=== PATIENT | female | born 1965 | race Caucasian/White ===

== ENCOUNTER 2017-09-22 17:40 | Emergency (ER) | payer BC ==
[2017-09-22] MEDS ORDERED: HYDROmorphone 1 MG/ML SYRINGE IM STA (18:25)
[2017-09-22] MEDS ORDERED: KETOROLAC 60 MG/2 ML VIAL IM STA (18:25)
[2017-09-22] MEDS ORDERED: BUPIVACAINE 0.5% PF 30 ML VIAL SUBQ STA (18:25)
--- NOTE | 2017-09-22 18:29 | XRAY Preliminary Report ---
Exam: XR WRIST 4 VIEW RT IMPRESSION: 1. Acute, mildly comminuted, intra-articular fracture the distal right radius metaphysis with 2 mm of dorsal displacement of the distal fragment. No significant angulation. 2. Avulsion fracture at the tip of the ulna styloid and a concomitant transverse fracture at the base of the ulna styloid. 3. No dislocation. 4. Large amount of wrist swelling. RADIA SITE ID: [id number]
--- NOTE | 2017-09-22 18:31 | XRAY Report ---
EXAM: RIGHT WRIST RADIOGRAPHY EXAM DATE: 09/22/2017 06:12 PM. CLINICAL HISTORY: Fell onto right wrist. Swollen and distorted. COMPARISON: None. TECHNIQUE: 3 views. FINDINGS: Bones: Acute transverse fracture at the base of the ulna styloid. Small avulsion fracture at the tip of the ulna styloid. There is an acute comminuted intra-articular distal right radius metaphyseal fra cture resulting in 2 mm of dorsal displacement. No significant angulation is noted. No scaphoid fract ure identified. Joints: Normal. No subluxations. Soft Tissues: Large amount of wrist swelling. IMPRESSION: 1. Acute, mildly comminuted, intra-articular fracture of the distal right radius metaphysis with 2 mm of dorsal displacement of the distal fragment. No significant angulation. 2. Avulsion fracture at the tip of the ulna styloid and a concomitant transverse fracture at the base of the ulna styloid. 3. No dislocation. 4. Large amount of wrist swelling. JUAN Referring Provider Line: [phone] SITE ID: [id number]
--- NOTE | 2017-09-22 19:23 | ED Physician Documentation ---
PD HPI UPPER EXT INJURY - Stated complaint Stated Complaint: R WRIST PAIN - Chief complaint Chief Complaint: Trauma Ext - History obtained from History obtained from: Patient - History of Present Illness Location: Right, Wrist (tripped and fell onto wrist with pain and defomrity. She says she grabbed it and pulled it straighter. Having pain and swelling.) Where injury occurred: Home Timing - onset: Today Timing - duration: Minutes Timing - details: Abrupt onset Worsened by: Moving, Palpating Associated symptoms: Swelling. No: Weakness Contributing factors: No: Anticoagulated Similar symptoms before: Has not had sx before Recently seen: Not recently seen Review of Systems Skin: denies: Abrasion (s), Laceration (s) Musculoskeletal: denies: Neck pain, Back pain Neurologic: denies: Headache, Head injury PD PAST MEDICAL HISTORY - Past Medical History Cardiovascular: High cholesterol Respiratory: None Neuro: None Endocrine/Autoimmune: None GI: None : None HEENT: None Psych: None Musculoskeletal: None Derm: None - Past Surgical History Past Surgical History: Yes General: Appendectomy Ortho: ACL reconstruction /INTERNAL MEDICINE NURSE PRACTITIONER: Other - Present Medications Home Medications: Ambulatory Orders Medication Instructions Recorded Confirmed Atorvastatin Calcium [Lipitor] 1 tab PO DAILY 09/22/17 09/22/17 HYDROcod/ACETAM 5/325 [Cabery 5/325] 1 tab PO Q6H PRN #20 tablet 09/22/17 - Allergies Allergies/Adverse Reactions: Allergies Allergy/AdvReac Type Severity Reaction Status Date / Time No Known Drug Allergies Allergy Verified 09/22/17 17:50 - Social History Does the pt smoke?: No Smoking Status: Never smoker Does the pt drink ETOH?: Yes Does the pt have substance abuse?: No - Immunizations Immunizations are current?: Yes - POLST Patient has POLST: No PD ED PE NORMAL - Vitals Vital signs reviewed: Yes - General General: Alert and oriented X 3, Well developed/nourished, Other (appears in pain) - HEENT HEENT: Atraumatic - Neck Neck: Supple, no meningeal sign, No bony TTP, No adenopathy - Cardiac Cardiac: RRR, No murmur - Respiratory Respiratory: Clear bilaterally - Derm Derm: Normal color, Warm and dry - Extremities Extremities: Other (right wrist markedly tender with swelling at distal radius area. Normal color in fingers. ) - Neuro Neuro: Alert and oriented X 3, No motor deficit, No sensory deficit, Normal speech Results - Vitals Vitals: Oxygen O2 Source Room air - Rads (name of study) right wrist Radiology: Prelim report reviewed, EMP read contemporaneously (distal radius fracture in good alignment, and ulnar styloid as well. ) Procedures - Splint (location) right forearm Splint applied by: Tech Type of splint: Fiberglass, Long arm, Sugar tong Other: Patient tolerated well, No complications, Neurovascular intact, Good alignment, Sling provided PD MEDICAL DECISION MAKING - ED course Complexity details: reviewed results, considered differential (I did hematoma block with marcaine and lido. Also given parenteral meds for pain. ), d/w patient Departure - Departure Disposition: 01 Home, Self Care Clinical Impression: Accidental fall Qualifiers: Encounter type: initial encounter Qualified Code(s): W19.XXXA - Unspecified fall, initial encounter Colles' fracture Qualifiers: Encounter type: initial encounter Fracture type: closed Laterality: right Qualified Code(s): S52.531A - Colles' fracture of right radius, initial encounter for closed fracture Condition: Stable Record reviewed to determine appropriate education?: Yes Instructions: ED Fx Colles Wrist No Redu Requ Follow-Up: Crissy Barrios MD [Provider Admit Priv/Credential] - Prescriptions: HYDROcod/ACETAM 5/325 [Cabery 5/325] 1 tab PO Q6H PRN #20 tablet PRN Reason: Pain Comments: Keep the splint on and elevate rest and ice the area often tonight and tomorrow to reduce swelling. Keep the arm in a sling so that it is stays elevated. He can use some naproxen or ibuprofen 2-3 times a day. Add Tylenol or hydrocodone if needed for pain. Follow-up with your orthopedist that you have seen previously, call tomorrow for an appointment for later this week or early next week. If he is unable to see you or you want to have a local orthopedist, I gave the number for orthopedics here on would be as well. Discharge Date/Time: 09/22/17 19:40
[2017-09-22 19:40] VITALS: BP 128/76
== END 2017-09-22 19:40 | disposition home or self-care (01) ==
LOC: ED 17:40
DX: S52.531A Colles' fracture of right radius, initial encounter for closed fracture (principal); W01.0XXA Fall on same level from slipping, tripping and stumbling without subsequent striking against object, initial encounter; Y92.008 Other place in unspecified non-institutional (private) residence as the place of occurrence of the external cause
CPT/HCPCS: 29105; 64450; 73110; 96372; 99283; 99284; J1170

== ENCOUNTER 2017-10-07 06:17 | Day surgery (SDC) | payer BC ==
[2017-10-07] MEDS ORDERED: ceFAZolin 2 GM/50 ML 2 GM/50 ML BAG IV ONE (06:31)
[2017-10-07] MEDS ORDERED: LACTATED RINGERS 1,000 ML IV ONE ×2 (06:39→09:45)
[2017-10-07] MEDS ORDERED: ROPIVACAINE 0.5% PF 20 ML AMPULE ONE (07:22)
[2017-10-07] MEDS ORDERED: LIDOCAINE MPF 1%-EPI 1:200000 30 ML VIAL ONE (07:49)
[2017-10-07] MEDS ORDERED: BUPIVACAINE 0.25% PF 30 ML VIAL ONE (07:49)
[2017-10-07] MEDS ORDERED: LIDOCAINE-MPF 2% 5 ML VIAL IM ONE (08:13)
[2017-10-07] MEDS ORDERED: ROCURONIUM 50 MG/5 ML VIAL IVP ONE (08:13)
[2017-10-07] MEDS ORDERED: fentaNYL 250 MCG/5 ML VIAL IVP ONE (08:13)
[2017-10-07] MEDS ORDERED: ACETAMINOPHEN 1,000 MG/100 ML 100 ML IV ONE (08:13)
[2017-10-07] MEDS ORDERED: PROPOFOL 200 MG/20 ML VIAL IVP ONE (08:13)
[2017-10-07] MEDS ORDERED: BUPIVACAINE 0.25% PF 30 ML VIAL SUBQ ONE ×2 (08:14)
[2017-10-07] MEDS ORDERED: LIDOCAINE 1%-EPI 1:100000 20 ML MDV SUBQ ONE ×2 (08:14)
[2017-10-07] MEDS: HYDROmorphone 1 MG/ML SYRINGE ONE ×2 (09:14→09:26)
[2017-10-07] MEDS ORDERED: KETOROLAC 30 MG/ML VIAL ONE (09:21)
[2017-10-07] MEDS ORDERED: fentaNYL 100 MCG/2 ML VIAL ONE (09:38)
[2017-10-07] MEDS ORDERED: ONDANSETRON 4 MG/2 ML VIAL ONE ×2 (09:39→10:10)
[2017-10-07] MEDS ORDERED: DEXAMETHASONE 4 MG/ML VIAL ONE (10:11)
[2017-10-07] MEDS ORDERED: HYDROcod/ACETAM 5/325 MG TABLET ONE ×2 (10:36→11:26)
[2017-10-07 12:04] VITALS: BP 115/63
--- NOTE | 2017-10-07 15:52 | OPERATIVE REPORT ---
DATE OF SERVICE: 10/07/2017 Physician: Crissy Barrios MD PREOPERATIVE DIAGNOSIS: Right distal radius intraarticular comminuted 4-part fracture. POSTOPERATIVE DIAGNOSIS: Right distal radius intraarticular comminuted 4-part fracture. NAME OF PROCEDURE: Open reduction, internal fixation of right distal radius comminuted 4-part fracture. SURGEON: Crissy Barrios MD ANESTHESIA: General. INDICATIONS FOR SURGERY: The patient is a 52-year-old female status post a ground level fall onto an outstretched wrist causing an intraarticular right wrist fracture. She presented to the clinic and surgery was recommended because of the degree of angulation and the potential instability of the fracture. Recommendation was for open reduction and internal fixation. FINDINGS AT SURGERY: The patient's fracture was found on its volar aspect to have entrapped periosteal tissue. The comminution was mostly on the posterior aspect of the bone. The intra-articular segment had remained minimally displaced through the radial border of the lunate fossa. DESCRIPTION OF OPERATIVE PROCEDURE: The patient was taken to the operating room , was given a general anesthetic. A tourniquet was placed on the upper arm. Forearm and hand were sterilely prepped and draped in a standard fashion. The patient's volar wrist was approached under tourniquet control with a 3-1/2 inch incision directly placed over the top of the flexor carpi radialis tendon. Electrocautery was used for small bleeders and dissection was carried radial to that tendon, directly down to the volar aspect of the wrist. The pronator quadratus was reflected off the volar radius and retracted to the ulnar aspect. The fracture was then identified and exposed, and the periosteum extracted and excised. The _DVR____ [TIME: 02:15] small plate for a right wrist was applied to the volar wrist, and positioned with C-arm assistance in AP and lateral planes. The cortical oblong hole was filled proximally and then the plate was affixed distally with a K-wire. Sequential screw application was then applied using locking holes to the reduced fracture in both the proximal and distal aspect using standard technique, and taking care to ensure that the screws seated well, were locked and did not protrude out the dorsal aspect. At the conclusion, the excess caps were removed from the plate, the pin extracted, the wound irrigated and the tourniquet deflated. Excellent reduction had been gained and excellent stability in bone that was surprisingly good. Closure was undertaken with 2-0 Vicryl repairing the pronator quadratus, 2-0 Vicryl deep and 3-0 Vicryl into the subcutaneous layer, followed by a running subcuticular 4-0 nylon suture. Sterile dressings were applied including a _Mediplex____ [TIME: 03:37] silver containing dressing directly on the wound, followed by cast padding and a sugar-tong splint on the forearm. The patient was taken to the recovery room in stable condition. ESTIMATED BLOOD LOSS FOR THE PROCEDURE: Minimal, less than 10 mL COMPLICATIONS: None. SPONGE AND NEEDLE COUNTS: Correct. Tourniquet time was 32 minutes at 250 mmHg. TD: 10/07/2017 15:50 [id number]
== END 2017-10-07 06:18 | disposition home or self-care (01) ==
LOC: SDS 06:17
PROVIDERS: ATTEND Orthopaedic Surgery
PROC: 0PSH04Z Reposition Right Radius with Internal Fixation Device, Open Approach (ICD-10-PCS; principal; 2017-10-07 07:30)
DX: S52.571A Other intraarticular fracture of lower end of right radius, initial encounter for closed fracture (principal)
CPT/HCPCS: 25609; A9270; C1713; J0131; J0690; J1170; J3010; J7120